=== PATIENT | female | born 1950 | race Caucasian/White ===

== ENCOUNTER → 2023-06-10 08:12 | Outpatient (REF) | payer OTHER, SELFPAY | LOC: WDC 08:12 | PROVIDERS: ATTENDING PHYSICIAN Internal Medicine | DX: Z12.31 Encounter for screening mammogram for malignant neoplasm of breast (principal) | CPT/HCPCS: 77063; 77067 ==

== ENCOUNTER 2023-06-26 13:12 | Emergency (ER) | payer OTHER, SELFPAY ==
[2023-06-26 13:44] VITALS: BP 176/79
[2023-06-26 14:15] LABS: % Basophils 0.5 % (0-2); % Eosinophils 0.4 % (0-6); % Immature Granulocytes 0.3 % (0-0.5); % Lymphocytes 9.3 % (20.5-51.1); % Neutrophils 83.5 % (42.2-75.2); Absolute Basophils 0.1 10^3/uL (0-0.2); Absolute Lymphocytes 0.9 10^3/uL (1.2-3.4); Absolute Monocytes 0.6 10^3/uL (0.1-0.6); Absolute Neutrophils 7.9 10^3/uL (1.4-6.5); Hemoglobin 13.3 g/dL (12.0-16.0); Mean Corp Hgb Conc. 34.1 g/dL (33.0-37.0); Mean Corpuscular Hgb 30.9 pg (27.0-31.0); Mean Corpuscular Volume 90.7 fL (81.0-99.0); Mean Platelet Volume 10.9 fL (7.4-10.4); Nucleated Red Blood Cells % 0 %; Platelet Count 218 10^3/uL (130-400); Red Cell Dist. Width 13.6 % (11.5-14.5); White Blood Cell Count 9.5 10^3/uL (4.8-10.8)
[2023-06-26 14:25] LABS: ALT (SGPT) 16 U/L (0-35); AST (SGOT) 33 U/L (14-36); Albumin 4.5 g/dl (3.5-5.0); Alkaline Phosphatase 71 U/L (38-126); Blood Urea Nitrogen 20 mg/dl (7-17); Calcium 9.6 mg/dl (8.4-10.2); Carbon Dioxide 31 mmol/L (22-30); Chloride 99 mmol/L (98-107); Glucose 104 mg/dl (70-99); Sodium 135 mmol/L (135-145); Total Bilirubin 0.7 mg/dl (0.2-1.3); eGFR > 60.00
[2023-06-26 14:40] LABS: Troponin I < 0.012 ng/ml
--- NOTE | 2023-06-26 16:54 | ED.GENMED ---
History of Present Illness
<Kena Garcia PA-C - Last Filed: 06/27/23 20:23>
General
Chief Complaint: Cardiac Symptoms
Source: patient
Exam Limitations: none
Time Seen by Provider: 06/26/23 16:28
Nursing documentation reviewed up to this point in time: agreed with
Travel History
Have you had any contact with someone who has COVID-19?: No
Do you have any symptoms of coronavirus? Fever > 100 degrees, chills, cough, shortness of breath, sore throat, loss of taste or smell, muscle aches, or headache?: No
History of Present Illness
History of Present Illness:
Patient is a 73-year-old female with history hypertension presenting for evaluation of left-sided chest pressure with radiation to left shoulder and left jaw. Symptoms started this morning when she woke around 8 AM. She states symptoms are somewhat
pleuritic in nature and worse when taking a deep breath. She denies any associated shortness of breath, nausea, vomiting, diaphoresis, or back pain. She denies any exertional component to chest pain. She does state that symptoms seem to be slightly
worse with movement/ leaning forward.
Patient endorses shoulder pain has mostly improved but she still feels the pressure in her left chest with some radiation in to her left jaw. She denies any numbness, weakness, headache, visual changes.
Patient denies any recent travel or surgeries. No history or blood clots
Past History
<Kena Garcia PA-C - Last Filed: 06/27/23 20:23>
Past History
ED Past Medical History: HTN and Other (Hyperlipidemia)
ED Past Surgical History: Cholecystectomy and Other (colonoscopy)
Social History
Tobacco: Non-smoker
Alcohol: Occasional
Drug: None
Personal:
Living: with family
Employment: Not employed
Family History
Family History: Other (Noncontributory)
Phy Exam
<Kena Garcia PA-C - Last Filed: 06/27/23 20:23>
Physical Exam
Physical Exam:
General: Well appearing and non-toxic
Vitals: Hypertensive , otherwise stable vital signs, afebrile
HEENT: Atraumatic, normocephalic; protecting airway
Neck: appears supple, no JVD; no cervical spine or midline spinal tenderness, full ROM of neck, no palpable lymphadenopathy
CV: RRR, heart sounds normal; no evidence of cyanosis; anterior chest wall nontender to palpation
Resp: Lungs clear bilaterally, no evidence of respiratory distress
Abd: Soft, nontender; non-distended
Extremities: No deformities, no evidence of cyanosis or edema; DP pulses palpable and equal bilaterally
Neuro: alert and oriented x 3; grossly intact
Psych: Normal affect
Skin: Intact, no rashes
Scores
<Kena Garcia PA-C - Last Filed: 06/27/23 20:23>
Heart Score for Chest Pain Patients
STEMI patient?: No
History: Slightly or Non-Suspicious
ECG: Normal
Age: >/= 65 years
Risk Factors: 1 or 2 Risk Factors
Troponin: </= Normal Limit
Heart Score for Chest Pain Patients: 3
Heart Score Risk: 2.5% MACE over next 6 weeks
Course
<Kena Garcia PA-C - Last Filed: 06/27/23 20:23>
Orders/Labs/Results
Orders:
Orders
06/26/23 13:16
EKG [Electrocardiogram (*1)] Urgent
Reason for Study: Chest Pain
06/26/23 13:17
EKG- Treatment ONCE
06/26/23 13:54
Complete Blood Count/With Diff Urgent
Comprehensive Metabolic Panel Urgent
Troponin I Urgent
06/26/23 17:00
CR Chest - 2 Views Urgent
Comment:
Reason For Exam: chest pain
06/26/23 18:09
Acetaminophen [Tylenol] 650 mg PO NOW STA
Abnormal Lab Results
06/26/23
13:54
MPV 10.9 H fL
(7.4-10.4)
Absolute Neuts (auto) 7.9 H 10^3/uL
(1.4-6.5)
Absolute Lymphs (auto) 0.9 L 10^3/uL
(1.2-3.4)
Neutrophils % 83.5 H %
(42.2-75.2)
Lymphocytes % 9.3 L %
(20.5-51.1)
Carbon Dioxide 31 H mmol/L
(22-30)
BUN 20 H mg/dl
(7-17)
Glucose 104 H mg/dl
(70-99)
06/26/23 13:54
06/26/23 13:54
Vital Signs
Initial and Last Documented VS:
Initial Vital Signs
Temp Pulse Resp BP Pulse Ox
98 F 66 18 176/79 98
06/26/23 13:44 06/26/23 13:44 06/26/23 13:44 06/26/23 13:44 06/26/23 13:44
Last Documented Vital Signs
Temp Pulse Resp BP Pulse Ox
98 F 66 18 201/75 100
06/26/23 13:44 06/26/23 13:44 06/26/23 13:44 06/26/23 18:06 06/26/23 17:56
Ririlt;Clovis Cardenas, DO - Last Filed: 06/26/23 17:04>
Orders/Labs/Results
Orders:
Orders
06/26/23 13:16
EKG [Electrocardiogram (*1)] Urgent
Reason for Study: Chest Pain
06/26/23 13:17
EKG- Treatment ONCE
06/26/23 13:54
Complete Blood Count/With Diff Urgent
Comprehensive Metabolic Panel Urgent
Troponin I Urgent
06/26/23 17:00
CR Chest - 2 Views Urgent
Comment:
Reason For Exam: chest pain
06/26/23 18:09
Acetaminophen [Tylenol] 650 mg PO NOW STA
Abnormal Lab Results
06/26/23
13:54
MPV 10.9 H fL
(7.4-10.4)
Absolute Neuts (auto) 7.9 H 10^3/uL
(1.4-6.5)
Absolute Lymphs (auto) 0.9 L 10^3/uL
(1.2-3.4)
Neutrophils % 83.5 H %
(42.2-75.2)
Lymphocytes % 9.3 L %
(20.5-51.1)
Carbon Dioxide 31 H mmol/L
(22-30)
BUN 20 H mg/dl
(7-17)
Glucose 104 H mg/dl
(70-99)
06/26/23 13:54
06/26/23 13:54
Vital Signs
Initial and Last Documented VS:
Initial Vital Signs
Temp Pulse Resp BP Pulse Ox
98 F 66 18 176/79 98
06/26/23 13:44 06/26/23 13:44 06/26/23 13:44 06/26/23 13:44 06/26/23 13:44
Last Documented Vital Signs
Temp Pulse Resp BP Pulse Ox
98 F 66 18 201/75 100
06/26/23 13:44 06/26/23 13:44 06/26/23 13:44 06/26/23 18:06 06/26/23 17:56
<Kena Garcia PA-C - Last Filed: 06/27/23 20:23>
MDM/Problems Addressed
Differential Diagnosis Includes:
Muscular strain, cervical radiculopathy, shoulder injury, pericarditis, pneumonia, ACS
MDM/Problems Addressed:
Patient is 71-year-old female with history hypertension presenting for evaluation of left-sided chest discomfort with radiation into the left neck/jaw since waking up this morning. There is no exertional or pleuritic component to his pain. There
is no associated shortness of breath, nausea, vomiting paresis. The symptoms do not seem anginal in nature. Patient is hypertensive, otherwise stable vital signs. Physical exam as document above. Heart rate regular, lungs clear. No evidence of
erythema or edema lower extremities. Initial EKG shows normal sinus rhythm without signs of ischemia. Will check basic labs, troponin. Given persistent symptoms will get chest x-ray.
CBC without any clinically significant abnormalities. CMP without any clinically significant abnormalities. Initial troponin negative. Given symptoms been ongoing since 8 AM this morning�this is enough to rule out acute PA. Chest x-ray shows no
signs of acute abnormalities.
Patient remained stable. No indication for admission at this time. Etiology of chest discomfort somewhat uncertain. Given age and hypertension�she is at high risk for future cardiac events. Will place on cardiac callback list. Return
precautions discussed at length. She will follow-up with primary care for management of hypertension and cardiology
Chronic conditions affecting care:
Hypertension
Acute Exacerbation and/or Progression of Chronic Illness:
Acutely hypertensive
<Kena Garcia PA-C - Last Filed: 06/27/23 20:23>
*Radiology
Radiology exam reviewed: preliminary read by ED provider and radiology read reviewed
*Pulse Oximetry
Patient hypoxic: no
*EKG
Interpreted by ED Provider?: Yes
EKG Intrepretation Date: 06/27/23
Interpretation: normal
Comparison EKG: changes noted
Heart Rate: 73
Rate: normal
Rhythm: sinus
[place]: normal axis
Interval: normal interval
QRS Pattern: normal QRS
Ischemia: no ischemia
*Parking Ramp Attendant Interpretation
Rate: normal
Interpretation: normal
Heart Rate: 62
Rhythm: sinus
*Critical Care Note
Total Time (30-74mins, 75-104mins- exclusive of procedures): Not Applicable
ED Attending Note
<Kena Garcia PA-C - Last Filed: 06/27/23 20:23>
-
Portions of this chart may have been created with voice recognition software.� Occasional wrong word or��sound alike� substitutions may have occurred due to the inherent limitations of voice recognition software.
<Clovis Cardenas DO - Last Filed: 06/26/23 17:04>
ED Attending Note
Patient seen and examined by attending physician: Yes
I performed the substantive portion of visit, reviewed & personally made and approve the management plan that is documented in note by myself or ROBYN.: Yes
ED Attending Note:
I have seen and evaluated the patient with a [id number] encounter. I have spoken to the advance practicer provider and involved in the medical history, the physical exam, medical decision making.
Evaluation and management service: agree unless noted differently below.
Results interpretation: agree unless noted differently below.
Focused HPI: 73-year-old female presenting with left-sided chest pain. She woke up with this pain. She does not remember any strenuous lifting or exercise. Symptoms are not worse when she exerts herself
Physical exam: Sitting in bed comfortably. Lungs clear. Heart regular rate and rhythm. No leg edema or tenderness
Medical Decision Making: Troponin and EKG normal. Given ongoing symptoms, will obtain chest x-ray. Will place on cardiac callback tracker
Discharge Plan
Departure
Patient Disposition: Home (Routine Discharge)
Date of Disposition: 06/26/23
Time of Disposition: 18:34
Patient with high blood pressure during this ER visit?: Yes
Condition: Good
Covid-19: Not Applicable
Discharge Problem:
Chest pain of uncertain etiology
Instructions: Chest Pain (DC), Chest Pain CBC Follow Up, BLOOD PRESSURE
Prescriptions:
No Action
ascorbic acid (vitamin C) [Vitamin C] 500 MG tablet
500 mg PO DAILY
triamterene-hydrochlorothiazid 1 EACH tablet
1 ea PO DAILY
Ca-D3-mag [id number] [Calcium 600-D3 Plus (mag-zinc)] 1 EACH tablet
1 ea PO DAILY
Friendly Yael
1 tab PO DAILY
[employer]
1 tab PO BID
Vitamin B-12:
1 tab PO DAILY
Patient Comments:
pt unsure of doseage
omeprazole magnesium [Prilosec OTC] 20 MG tablet,delayed release (DR/EC)
20 mg PO DAILY Qty: 1 0RF
Rx Instructions:
purchase over the counter in pharmacy
Referrals:
Ronald Crespo, DO [Family Provider] -
Activity Restrictions/Additional Instructions:
-Return to the emergency department with any worsening in chest discomfort, shortness of breath, dizziness/lightheadedness, severe headache, severe back pain, numbness or weakness, worsening in current symptoms, or any other concerns
-As discussed - you can take motrin/tylenol as needed for discomfort. Stay well hydrated.
-You should follow-up with primary care for further evaluation/management of your hypertension.
-Follow-up with cardiology for further evaluation/treatment of chest discomfort.
Interventions
Interventions:
*Risk Screen - Suicide Last Done: 06/26/23 17:09
*General Assessment Last Done: 06/26/23 17:09
*Neglect/Abuse Screening Last Done: 06/26/23 17:09
ED- Fall Risk Assessment Last Done: 06/26/23 17:09
*ED COVID-19 Vaccine History Last Done: 06/26/23 17:09
*Nursing Disposition Last Done: 06/26/23 18:40
ED- Pulmonary Assessment Last Done: 06/26/23 17:09
ED- Cardiac Assessment Last Done: 06/26/23 17:09
Discharge Date and Time
Discharge Date/Time: 06/26/23 18:40
[2023-06-26 17:09] VITALS: BMI 26.2
[2023-06-26 17:17] VITALS: BP 197/80
[2023-06-26 18:06] VITALS: BP 201/75
[2023-06-26] MEDS: TYLENOL 650 MG PO (18:13)
== END 2023-06-26 18:40 | disposition home or self-care (01) ==
LOC: EMR 13:12
PROVIDERS: Emergency Medicine; EMERGENCY PHYSICIAN Student in an Organized Health Care Education/Training Program; FAMILY PHYSICIAN Internal Medicine
DX: R07.9 Chest pain, unspecified (principal); I10 Essential (primary) hypertension
CPT/HCPCS: 99285; 71046; 80053; 84484; 85025; 93005

== ENCOUNTER → 2023-07-09 12:15 | Outpatient (REF) | payer OTHER, SELFPAY | LOC: DHCBC/DCA 12:15 | PROVIDERS: ATTENDING PHYSICIAN Internal Medicine Cardiovascular Disease; FAMILY PHYSICIAN Internal Medicine | DX: R07.2 Precordial pain (principal) | CPT/HCPCS: 78452; 93017; A9500; J2785 ==

== ENCOUNTER → 2023-07-16 09:13 | Outpatient (REF) | payer OTHER, SELFPAY | LOC: HWRCS 09:13 | PROVIDERS: ATTENDING PHYSICIAN Internal Medicine Cardiovascular Disease; FAMILY PHYSICIAN Internal Medicine | DX: R07.2 Precordial pain (principal) | CPT/HCPCS: 93306 ==

== ENCOUNTER → 2023-08-08 12:53 | Outpatient (REF) | payer OTHER, SELFPAY | LOC: HWRAD 12:53 | PROVIDERS: ATTENDING PHYSICIAN Internal Medicine Cardiovascular Disease; FAMILY PHYSICIAN Internal Medicine | DX: K76.9 Liver disease, unspecified (principal) | CPT/HCPCS: 76700 ==

== ENCOUNTER → 2024-02-07 11:57 | Outpatient (REF) | payer OTHER, SELFPAY | LOC: RAD 11:57 | PROVIDERS: ATTENDING PHYSICIAN Internal Medicine | DX: M25.572 Pain in left ankle and joints of left foot (principal) | CPT/HCPCS: 73610 ==

== ENCOUNTER → 2024-06-13 09:12 | Outpatient (REF) | payer OTHER, SELFPAY | LOC: WDC 09:12 | PROVIDERS: ATTENDING PHYSICIAN Internal Medicine | DX: Z12.31 Encounter for screening mammogram for malignant neoplasm of breast (principal) | CPT/HCPCS: 77063; 77067 ==